=== PATIENT | male | born 1990 | race Caucasian/White ===

== ENCOUNTER 2024-07-31 12:20 | Emergency (ER) | payer SELFPAY ==
[~2024-07-31] VITALS: Ht 167.6 cm; Wt 72.7 kg
[2024-07-31 13:38] LABS: BASOPHILS % (AUTO) 1.1 % (0.0-2.0); EOSINOPHILS % (AUTO) 3.8 % (1.0-6.0); HEMATOCRIT 40.8 % (41-53); HEMOGLOBIN 13.7 g/dL (13.5-17.5); LYMPHOCYTES # (AUTO) 2.7 K/uL (1.0-4.8); LYMPHOCYTES % (AUTO) 27.8 % (22.0-44.0); MEAN CORPUSCULAR HGB CONC 33.6 G/dL (31.0-37.0); MEAN CORPUSCULAR VOLUME 92 fL (80-100); MONOCYTES # (AUTO) 0.8 K/uL (0.1-1.0); MONOCYTES % (AUTO) 8.8 % (2.0-9.0); NEUTROPHILS # (AUTO) 5.6 K/uL (1.8-7.7); NEUTROPHILS % (AUTO) 58.5 % (40.0-70.0); PLATELET COUNT (AUTO) 294 K/uL (150-450); RED BLOOD CELL COUNT(AUTO) 4.43 MIL/uL (4.50-5.90); RED CELL DISTRIBUTION WIDTH 14.1 % (11.5-14.5); WHITE BLOOD COUNT (AUTO) 9.5 K/uL (4.5-11.0)
[2024-07-31 13:40] LABS: ANION GAP 9 mmol/L (8-16); CARBON DIOXIDE 30 mmol/L (22-29); CHLORIDE 99 mmol/L (98-107); CREATININE 1.03 mg/dL (0.60-1.30); GLOMERULAR FILTR. RATE CALC > 60 mL/min (>60); GLUCOSE,RANDOM 113 mg/dL (70-110); POTASSIUM 3.7 mmol/L (3.5-5.1); SODIUM SERUM 137 mmol/L (136-145); UREA NITROGEN, BLOOD 30 mg/dL (7-18)
[2024-07-31 13:54] LABS: ALCOHOL, BLOOD (SERUM) < 3 mg/dL (0-10)
[2024-07-31 14:29] VITALS: BP 117/89; PULSE 92; RESP 16; TEMP 98.5; O2SAT 100
[2024-07-31] MEDS ORDERED: MAG HYDROX/ALUMINUM HYD/SIMETH ES 30 ML SUSPENSION UDCUP PO PRN (15:45)
[2024-07-31] MEDS ORDERED: ACETAMINOPHEN 325 MG TABLET PO PRN (15:45)
[2024-07-31] MEDS ORDERED: LORazepam 2 MG TABLET PO PRN (15:45)
[2024-07-31] MEDS ORDERED: MELATONIN 5 MG TABLET PO PRN (15:45)
[2024-07-31] MEDS ORDERED: TUBERCULIN, PURIFIED PROTEIN DERIVATIVE 5 TU/0.1 ML SYRINGE ID ONE (15:45)
[2024-07-31] MEDS: CYANOCOBALAMIN 1,000 MCG/ML VIAL IM ONE (15:45)
[2024-07-31] MEDS ORDERED: ZOLPIDEM TARTRATE 10 MG TABLET PO PRN (15:45)
[2024-07-31] MEDS ORDERED: LOPERAMIDE HCL 2 MG CAPSULE PO PRN (15:45)
[2024-07-31] MEDS ORDERED: GuaiFENesin/D-METHORPHAN [SUGAR-FREE] 200-20MG/10 ML SYRUP UDCUP PO PRN (15:45)
[2024-07-31] MEDS ORDERED: HydrOXYzine PAMOATE 50 MG CAPSULE PO PRN (15:45)
[2024-07-31] MEDS ORDERED: MAGNESIUM HYDROXIDE SUSPENSION 30 ML UDCUP PO PRN (15:45)
[2024-07-31] MEDS ORDERED: PROMETHAZINE HCL 25 MG TABLET PO PRN (15:45)
[2024-07-31] MEDS ORDERED: OLANZapine 5 MG RAPDIS TABLET PO PRN (15:45)
[2024-07-31 17:36] LABS: COVID AG,FIA SOURCE NASAL SWAB
[2024-07-31 17:57] LABS: SARS-COV2 (COVID) ANTIGEN,FIA Negative (Negative)
[2024-07-31 18:46] LABS: PH,URINE DRUG SCREEN 5.5 (5.0-8.0)
[2024-07-31 18:51] LABS: ALCOHOL, URINE DRUG SCREEN NEGATIVE (NEGATIVE); AMPHET/METH SCREEN,URINE POSITIVE (NEGATIVE); BARBITURATE SCREEN, URINE NEGATIVE (NEGATIVE); BENZODIAZEPINES SCREEN,URINE NEGATIVE (NEGATIVE); CANNABINOID SCREEN,URINE NEGATIVE (NEGATIVE); COCAINE SCREEN,URINE NEGATIVE (NEGATIVE); METHADONE SCREEN, URINE NEGATIVE (NEGATIVE); OPIATE SCREEN,URINE NEGATIVE (NEGATIVE); PHENCYCLIDINE SCREEN,URINE NEGATIVE (NEGATIVE)
[2024-07-31] MEDS ORDERED: THIAMINE 100 MG TABLET PO SCH (21:00)
[2024-08-01] MEDS ORDERED: FOLIC ACID 1 MG TABLET PO SCH (09:00)
[2024-08-01] MEDS ORDERED: NALTREXONE HCL 50 MG TABLET PO SCH (09:00)
[2024-08-01] MEDS ORDERED: BuPROPion HCL XL 150 MG ER TABLET PO SCH (09:00)
[2024-08-01] MEDS ORDERED: MULTIVITAMINS WITH MINERALS, THERAPEUTIC TABLET PO SCH (09:00)
[2024-08-03] MEDS ORDERED: LOPERAMIDE HCL 2 MG CAPSULE PO PRN (15:45)
== END 2024-07-31 20:23 | disposition admitted as inpatient to this hospital (09) ==
LOC: EMS 12:20
DX: F32.9 Major depressive disorder, single episode, unspecified (principal); R45.851 Suicidal ideations; Z59.00 Homelessness unspecified; Z20.822 Contact with and (suspected) exposure to COVID-19
CPT/HCPCS: 99285; 87426; 80048; 85025; 36415; 96372; 80307; G0480; J3420

== ENCOUNTER 2024-07-31 12:28 | Inpatient (IN) | payer MEDICAID ==
[~2024-07-31] VITALS: Ht 167.6 cm; Wt 72.7 kg
[2024-07-31 20:30] VITALS: BP 131/83; PULSE 106; RESP 18; TEMP 97.8; O2SAT 95
[2024-08-01] MEDS ORDERED: ZOLPIDEM TARTRATE 10 MG TABLET PO PRN (07:30)
[2024-08-01] MEDS ORDERED: HALOPERIDOL 5 MG TABLET PO PRN (07:30)
[2024-08-01] MEDS ORDERED: LORazepam 2 MG TABLET PO PRN (07:30)
[2024-08-01] MEDS: THIAMINE 100 MG TABLET PO SCH (09:00)
[2024-08-01] MEDS ORDERED: ACETAMINOPHEN 325 MG TABLET PO PRN (09:00)
[2024-08-01] MEDS ORDERED: MELATONIN 5 MG TABLET PO PRN (09:00)
[2024-08-01] MEDS ORDERED: LOPERAMIDE HCL 2 MG/15 ML SUSPENSION UDCUP PO PRN (09:00)
[2024-08-01] MEDS ORDERED: MAGNESIUM HYDROXIDE SUSPENSION 30 ML UDCUP PO PRN (09:00)
[2024-08-01] MEDS: FOLIC ACID 1 MG TABLET PO SCH (09:00)
[2024-08-01] MEDS ORDERED: MAG HYDROX/ALUMINUM HYD/SIMETH ES 30 ML SUSPENSION UDCUP PO PRN (09:00)
[2024-08-01] MEDS ORDERED: GuaiFENesin/D-METHORPHAN [SUGAR-FREE] 200-20MG/10 ML SYRUP UDCUP PO PRN (09:00)
[2024-08-01] MEDS: NALTREXONE HCL 50 MG TABLET PO SCH (09:00)
[2024-08-01] MEDS ORDERED: OLANZapine 5 MG TABLET PO PRN (09:00)
[2024-08-01] MEDS ORDERED: HydrOXYzine PAMOATE 50 MG CAPSULE PO PRN (09:00)
[2024-08-01] MEDS: BuPROPion HCL XL 150 MG ER TABLET PO SCH (09:00)
[2024-08-01] MEDS: MULTIVITAMINS WITH MINERALS, THERAPEUTIC TABLET PO SCH (09:00)
[2024-08-01] MEDS ORDERED: PROMETHAZINE HCL 25 MG TABLET PO PRN (09:00)
[2024-08-01 09:01] LABS: ALCOHOL, URINE DRUG SCREEN NEGATIVE (NEGATIVE); AMPHET/METH SCREEN,URINE POSITIVE (NEGATIVE); BARBITURATE SCREEN, URINE NEGATIVE (NEGATIVE); BENZODIAZEPINES SCREEN,URINE NEGATIVE (NEGATIVE); CANNABINOID SCREEN,URINE NEGATIVE (NEGATIVE); COCAINE SCREEN,URINE NEGATIVE (NEGATIVE); METHADONE SCREEN, URINE NEGATIVE (NEGATIVE); OPIATE SCREEN,URINE NEGATIVE (NEGATIVE); PHENCYCLIDINE SCREEN,URINE NEGATIVE (NEGATIVE)
[2024-08-01 09:31] LABS: APPEARANCE,URINE CLEAR (CLEAR); BILIRUBIN,URINE NEGATIVE (NEGATIVE); COLOR,URINE LIGHT YELLOW (YELLOW); GLUCOSE, URINE (UA) NEGATIVE (NEGATIVE); KETONES,URINE NEGATIVE (NEGATIVE); LEUKOCYTE ESTERASE ,URINE SMALL (NEGATIVE); NITRATE,URINE NEGATIVE (NEGATIVE); OCCULT BLOOD,URINE NEGATIVE (NEGATIVE); PROTEIN,URINE TRACE mg/dL (NEGATIVE); SPECIFIC GRAVITIY, URINE 1.028 (1.003-1.030); UROBILINOGEN,URINE <=1.0 mg/dL (<=1.0)
[2024-08-01 09:40] LABS: BACTERIA,URINE None Seen /HPF (None Seen); RBC,URINE None Seen /HPF (0-2); SQUAMOUS EPITHELIAL CELL,UR Few /LPF (None Seen)
[2024-08-01] MEDS: OLANZapine 5 MG RAPDIS TABLET PO SCH (12:28)
[2024-08-01] MEDS: DARUNAVIR/COB/EMTRI/TENOF ALAF 800-150-200-10 MG TABLET PO SCH (13:14)
[2024-08-01 21:55] VITALS: RESP 17
[2024-08-02 11:27] VITALS: BP 135/93; PULSE 100; RESP 18; TEMP 98.2; O2SAT 99
[2024-08-02 20:48] VITALS: BP 128/66; PULSE 88; RESP 18; TEMP 97.4; O2SAT 96
[2024-08-02] MEDS ORDERED: MELA5TAB40 PO (22:14)
[2024-08-02] MEDS ORDERED: OLAN5TAB94 PO (22:14)
[2024-08-02] MEDS ORDERED: BUPR-49 PO (22:14)
[2024-08-03] MEDS ORDERED: INFLUENZA VIRUS VACCINE TVS (6MO+) 2024-25/PF 45 MCG/0.5 ML SYRINGE IM. ONE (07:00)
[2024-08-03] MEDS ORDERED: DARU1TAB3 PO (11:32)
[2024-08-03] MEDS ORDERED: NALT50TA33 PO (11:33)
== END 2024-08-03 11:30 | disposition home or self-care (01) | DRG 750 ==
LOC: EMS 22:00 → 3EC 22:57 → 3EI 08-02 17:53
PROVIDERS: ADMIT Psychiatry & Neurology Psychiatry; ATTEND Psychiatry & Neurology Psychiatry
PROC: GZHZZZZ Group Psychotherapy (ICD-10-PCS; principal; 2024-08-01)
PROC: GZ51ZZZ Individual Psychotherapy, Behavioral (ICD-10-PCS; 2024-08-01)
PROC: GZ56ZZZ Individual Psychotherapy, Supportive (ICD-10-PCS; 2024-08-01)
PROC: GZ58ZZZ Individual Psychotherapy, Cognitive-Behavioral (ICD-10-PCS; 2024-08-01)
DX: F25.9 Schizoaffective disorder, unspecified (principal); R45.851 Suicidal ideations; F22 Delusional disorders; F64.0 Transsexualism; J44.9 Chronic obstructive pulmonary disease, unspecified; F17.210 Nicotine dependence, cigarettes, uncomplicated; Z59.02 Unsheltered homelessness; Z91.199 Patient's noncompliance with other medical treatment and regimen due to unspecified reason
CPT/HCPCS: 80307; 81001; 99285